=== PATIENT | female | born 1940 | race Caucasian/White ===

== ENCOUNTER 2017-09-15 01:09 | Emergency (ER) | payer MEDICARE, OTHER ==
--- NOTE | 2017-09-15 01:30 | ED Physician Documentation ---
PD HPI UPPER EXT INJURY - Stated complaint Stated Complaint: LT FOREARM LACERATION - Chief complaint Chief Complaint: Laceration - History obtained from History obtained from: Patient - History of Present Illness Location: Left, Forearm Type of injury: Laceration Where injury occurred: [place] Timing - onset: Yesterday Timing - details: Abrupt onset, Still present Contributing factors: No: Anticoagulated Similar symptoms before: Has not had sx before Recently seen: Not recently seen - Additonal information Additional information: patient is a 77 year old female presenting to the emergency department for an arm laceration. Patient was playing golf yesterday and she cut her arm on something on the golf cart. patient states that her arm kept bleeding so she came in for evaluation. Patient is unsure of her tetanus status. Review of Systems Ten Systems: 10 systems reviewed and negative Skin: reports: Laceration (s) PD PAST MEDICAL HISTORY - Past Medical History Cardiovascular: Hypertension - Past Surgical History Past Surgical History: Yes Ortho: Hip replacement, Spine surgery - Present Medications Home Medications: Ambulatory Orders Medication Instructions Recorded Confirmed Atenolol 0.25 tab DAILY 05/12/16 05/12/16 Estradiol 1 tab PO DAILY 09/15/17 09/15/17 Norethindrone [Eugenia] 1 tab PO DAILY 09/15/17 09/15/17 - Allergies Allergies/Adverse Reactions: Allergies Allergy/AdvReac Type Severity Reaction Status Date / Time tetracycline Allergy Unknown Verified 09/15/17 01:18 - Social History Does the pt smoke?: No Smoking Status: Never smoker Does the pt drink ETOH?: Yes ETOH Use: Wine Does the pt have substance abuse?: No PD ED PE NORMAL - Vitals Vital signs reviewed: Yes - General General: Alert and oriented X 3, No acute distress - HEENT HEENT: Atraumatic - Cardiac Cardiac: RRR - Respiratory Respiratory: No respiratory distress - Abdomen Abdomen: Non distended - Neuro Neuro: Alert and oriented X 3 Eye Opening: Spontaneous PD ED PE EXPANDED - Derm Derm: Laceration(s) - Extremities Extremities: Left forearm (4cm laceration, skin tear) Results - Vitals Vitals: Vital Signs - 24 hr 09/15/17 01:15 Temperature 36.1 C L Heart Rate 88 Respiratory 16 Rate Blood Pressure 121/91 H O2 Saturation 100 Oxygen O2 Source Room air Procedures - Laceration (location) left forearm Length in cm: 4 Wound type: Flap Neurovascular status: Sensory intact, Vascular intact Wound Preparation: Chlorhexadine, Irrigated copiously NS Skin layer closure: Dermabond, Steri strips Other: Patient tolerated well, No complications, Dressing applied, Tetanus booster given Complexity: Simple PD MEDICAL DECISION MAKING - ED course Complexity details: reviewed old records, reviewed results, re-evaluated patient , considered differential, d/w patient ED course: Patient was seen and examined at bedside. patient was well appearing and in no acute distress. Patient's wound was cleaned and repaired as described above. Patient required no further work up and was stable for discharge with outpatient follow up. Departure - Departure Disposition: Home, Self Care Clinical Impression: Laceration Condition: Good Instructions: ED Laceration Ext Sutr Stap Tape Follow-Up: Rajiv Albrecht MD [Primary Care Provider] - Comments: You should keep the wound clean and dry. The strips should stay on the laceration for the next 5-7 days. If one comes off earlier you can replace it. You can take motrin or tylenol as needed for pain. You should monitor for signs of infection. You may return to the emergency department at any time for new, worsening or uncontrollable symptoms.
[2017-09-15] MEDS: TETANUS/DIPHTHERIA/PERTUSSIS 0.5 ML SYRINGE IM ONE (01:32)
[2017-09-15 01:58] VITALS: BP 136/78
== END 2017-09-15 01:55 | disposition home or self-care (01) ==
LOC: ED 01:09
DX: S51.812A Laceration without foreign body of left forearm, initial encounter (principal); W26.8XXA Contact with other sharp object(s), not elsewhere classified, initial encounter; Y93.53 Activity, golf; Y92.830 Public park as the place of occurrence of the external cause; Z23 Encounter for immunization; I10 Essential (primary) hypertension; Z96.649 Presence of unspecified artificial hip joint
CPT/HCPCS: 12002; 90471; 99282; 99283

== ENCOUNTER 2020-10-21 21:41 | Outpatient (CLI) | payer MEDICARE, OTHER | END 2020-10-21 21:42 | disposition EMS.NT | LOC: EMS 21:41 | DX: S59.912A Unspecified injury of left forearm, initial encounter (principal); S51.811A Laceration without foreign body of right forearm, initial encounter; W19.XXXA Unspecified fall, initial encounter; Y92.002 Bathroom of unspecified non-institutional (private) residence as the place of occurrence of the external cause | CPT/HCPCS: A0425; A0429 ==

== ENCOUNTER 2020-10-21 21:59 | Emergency (ER) | payer MEDICARE, OTHER ==
--- NOTE | 2020-10-21 22:06 | ED Physician Documentation ---
PD HPI UPPER EXT INJURY - Stated complaint Stated Complaint: ETOH/ LT ARM INJ - History obtained from History obtained from: Patient - History of Present Illness Location: Left, Forearm Type of injury: Fall (she states she lost balance after having a few drinks with friends (not a common practice), and fell forward, striking forearms on sink, with skin tears, mainly on left forearm.) Where injury occurred: Home Timing - onset: Today (just BLUNGER) Timing - details: Abrupt onset, Still present Worsened by: Moving, Palpating Associated symptoms: No: Weakness, Numbness Contributing factors: No: Anticoagulated Similar symptoms before: Has not had sx before Review of Systems Constitutional: denies: Fever Nose: denies: Rhinorrhea / runny nose, Congestion Throat: denies: Sore throat Respiratory: denies: Cough Skin: reports: Laceration (s) (left forearm mainly and small partial thickness skin tear right.) PD PAST MEDICAL HISTORY - Past Medical History Cardiovascular: Hypertension - Past Surgical History Past Surgical History: Yes Ortho: Hip replacement, Spine surgery - Present Medications Home Medications: Ambulatory Orders Medication Instructions Recorded Confirmed atenoloL [Atenolol] 0.25 tab DAILY 05/12/16 05/12/16 Norethindrone [Eugenia] 1 tab PO DAILY 09/15/17 09/15/17 estradioL [Estradiol] 1 tab PO DAILY 09/15/17 09/15/17 - Allergies Allergies/Adverse Reactions: Allergies Allergy/AdvReac Type Severity Reaction Status Date / Time tetracycline Allergy Unknown Verified 09/15/17 01:18 - Social History Does the pt smoke?: No Smoking Status: Never smoker Does the pt drink ETOH?: Yes Does the pt have substance abuse?: No PD ED PE NORMAL - Vitals Vital signs reviewed: Yes - General General: Alert and oriented X 3, No acute distress, Well developed/nourished - Derm Derm: Normal color, Warm and dry - Extremities Extremities: Other (right forearm with small 2 cm partial thickness tear with loose skin. Left forearm with some superficial avulsions distal. Mid forearm with full thickness to fatty tissue lac. No deep structures. ) - Neuro Neuro: No motor deficit, No sensory deficit Results - Vitals Vitals: Vital Signs - 24 hr 10/21/20 10/22/20 22:07 00:38 Temperature 36.2 C L 36.6 C Heart Rate 83 98 Respiratory 18 18 Rate Blood Pressure 127/78 136/80 H O2 Saturation 98 98 Oxygen O2 Source Room air Procedures - Laceration (location) left forearm Length in cm: 4 Wound type: Linear, Into subcut fat, Clean Neurovascular status: Sensory intact, Motor intact, Vascular intact Tendon involvement: No: Tendon Injury Anesthesia: Lidocaine 1% with epi Wound preparation: Irrigated copiously NS, Wound explored, To the base. No: FB identified Skin layer closure: Nylon, Steri strips, Running (loosely spaced and not tight, to allow steristrips interposed.) Departure - Departure Disposition: 01 Home, Self Care Clinical Impression: Skin avulsion Forearm laceration Qualifiers: Encounter type: initial encounter Laterality: left Qualified Code(s): S51.812A - Laceration without foreign body of left forearm, initial encounter Fall from slip, trip, or stumble Qualifiers: Encounter type: initial encounter Qualified Code(s): W01.0XXA - Fall on same level from slipping, tripping and stumbling without subsequent striking against object, initial encounter Condition: Stable Record reviewed to determine appropriate education?: Yes Instructions: ED Laceration Ext Sutr Stap Tape Follow-Up: Rajiv Albrecht MD [Primary Care Provider] - Comments: You can gently clean the areas of peeled skin with soap and water and apply ointment and dressings daily. Try to keep the laceration part with the Steri- Strips dry until the Steri-Strips fall off. The sutures underneath are loosely spaced to help support the skin along with the Steri-Strips as the laceration was full thickness down to the fatty tissue in that area, rather than just partial skin layer as with the other wounds on the forearm. The sutures will need removing in about 9 or 10 days. That can be here, your PMD, or could go to the Walk In clinic if more convenient. Tylenol if needed for pains every 4-6 hours. Recheck if signs of infection. Discharge Date/Time: 10/22/20 00:38
[2020-10-21] MEDS ORDERED: LIDOCAINE JELLY 2% 6 ML JEL.PF.APP TOP STA (22:12)
[2020-10-21] MEDS ORDERED: IBUPROFEN 600 MG TABLET PO STA (22:12)
[2020-10-21] MEDS ORDERED: LIDOCAINE 1%-EPI 1:100000 20 ML MDV SUBQ STA (22:12)
[2020-10-21] MEDS ORDERED: ACETAMINOPHEN 650 MG SUPP PR STA (22:12)
--- OUTSIDE RECORDS SUMMARY | 2020-10-21 22:22 | EXTERNAL MEDICAL SUMMARY RPT | Continuity of Care Document ---
:1940 Demographics Phone Unavailable Preferred Language Bulgarian Marital Status Unknown Episcopal Affiliation Unknown Race Unknown Ethnic Group Unknown Author Organization [place] Address [address] [phone] Phone Care Team Providers Name Role Phone Hogge Unavailable Unavailable Allergies Encounters Medications date description facility [id number] {28 (Norethindrone 0.35 MG Oral Tablet) } [facility] Problems Procedures date description facility [id number] [facility] [id number] [facility] Results Vital Signs date measurement value source 20200902 weight_standard 58.97 lb 20200902 weight_metric 26.75 kg 20200902 temperature_standard 97.6 F 20200902 temperature_metric 36.44 C 20200902 respiration_rate 15 /min 20200902 height_standard 66 in 20200902 height_metric 167.64 cm 20200902 heart_rate 78 /min 20200902 BP_systolic 174 mm[Hg] [id number] BP_diastolic 84 mm[Hg] 20200902 BMI 20.9 kg/m2 20200905 weight_standard 59.87 lb 20200905 weight_metric 27.16 kg [id number] height_standard 66 in 20200905 height_metric 167.64 cm 20200905 heart_rate 85 /min 20200905 BP_systolic 140 mm[Hg] [id number] BP_diastolic 78 mm[Hg] 20200905 BMI 21.3 kg/m2
[2020-10-21] MEDS ORDERED: BACITRACIN ZINC OINT 1 PACKET TOP STA (23:42)
[2020-10-22] MEDS ORDERED: BACITRACIN ZINC OINT 1 PACKET TOP ONE (00:05)
[2020-10-22 00:40] VITALS: BP 136/80
== END 2020-10-22 00:38 | disposition home or self-care (01) ==
LOC: EDUNIT# → ED 21:59
DX: S51.812A Laceration without foreign body of left forearm, initial encounter (principal); W01.0XXA Fall on same level from slipping, tripping and stumbling without subsequent striking against object, initial encounter; Y93.89 Activity, other specified; I10 Essential (primary) hypertension
CPT/HCPCS: 12002; 99282; 99283; A9270

== ENCOUNTER 2022-04-29 18:34 | Outpatient (CLI) | payer MEDICARE, OTHER | END 2022-04-29 23:59 | disposition EMS.NT | LOC: EMS 18:34 | DX: S80.811A Abrasion, right lower leg, initial encounter (principal); X58.XXXA Exposure to other specified factors, initial encounter; Y92.009 Unspecified place in unspecified non-institutional (private) residence as the place of occurrence of the external cause ==

== ENCOUNTER 2022-07-16 14:21 | Outpatient (CLI) | payer MEDICARE, OTHER | END 2022-07-16 23:59 | disposition EMS.NT | LOC: EMS 14:21 | DX: S81.011A Laceration without foreign body, right knee, initial encounter (principal); S41.111A Laceration without foreign body of right upper arm, initial encounter; W01.0XXA Fall on same level from slipping, tripping and stumbling without subsequent striking against object, initial encounter; Y92.008 Other place in unspecified non-institutional (private) residence as the place of occurrence of the external cause ==

== ENCOUNTER 2023-03-29 10:34 | Outpatient (CLI) | payer MEDICARE, OTHER | END 2023-03-29 10:35 | disposition EMS.NT | LOC: EMS 10:34 | DX: Z03.89 Encounter for observation for other suspected diseases and conditions ruled out (principal) ==